=== PATIENT | female | born 1995 | race Caucasian/White ===

== ENCOUNTER 2021-02-06 06:14 | Emergency (ER) | payer BC ==
[2021-02-06 07:03] LABS: Absolute Lymphocytes (CBC) 1.8 K/uL (0.7-4.9); Basophils % 0.8 % (0-1.3); Hematocrit 40.4 % (36.0-45.0); Lymphocytes % 29.9 % (15.3-44.8); MPV 8.9 fL (7.6-11.3)
[2021-02-06 07:09] LABS: Protime INR 1.03
[2021-02-06 07:26] LABS: ALT/SGPT 22 U/L (12-78); AST/SGOT 20 U/L (15-37); Albumin 3.6 g/dL (3.4-5.0); Alkaline Phosphatase 37 U/L (45-117); BUN Blood Urea Nitrogen 11 mg/dL (7-18); Bicarbonate 26 mmol/L (21-32); Bilirubin Direct 0.1 mg/dL (0-0.2); Bilirubin Total 0.5 mg/dL (0.2-1.0); Glucose Level 100 mg/dL (74-106); Magnesium 1.8 mg/dL (1.8-2.4); NT PRO-BNP 53 pg/mL (<125); Potassium 3.7 mmol/L (3.5-5.1); Protein, Total 6.7 g/dL (6.4-8.2); Sodium Level 139 mmol/L (136-145); Troponin (Emerg Dept Use Only) < 0.02 ng/mL (0.0-0.045)
[2021-02-06 07:27] LABS: Urine Blood Negative (Negative); Urine Glucose Negative (Negative); Urine Protein Negative (Negative)
[2021-02-06] MEDS ORDERED: NA CHLORIDE 0.9% 1,000 ML ONE (07:41)
[2021-02-06 07:43] LABS: Barbiturates NEGATIVE (NEGATIVE); Benzodiazepines NEGATIVE (NEGATIVE); Cocaine NEGATIVE (NEGATIVE); METHAMPHETAM NEGATIVE (NEGATIVE); Methadone NEGATIVE (NEGATIVE); Opiates NEGATIVE (NEGATIVE); Phencyclidine NEGATIVE (NEGATIVE); THC Cannibis NEGATIVE (NEGATIVE)
--- NOTE | 2021-02-06 07:50 | EDPHYS ---
Physician Documentation [facility] Name: Gwyn Navarro Age: 26 yrs Sex: Female : 1995 Arrival Date: 02/06/2021 Time: 06:28 Bed 5 Private MD: ED Physician Abraham Dennis HPI: 02/06 06:46 This 26 yrs old Female presents to ER via EMS with complaints of Palpitations.mh7 06:46 The patient presents with a history of heart racing. Context: The symptoms occur with mh7 exercise. Onset: The symptoms/episode began/occurred today. Duration: The patient or guardian reports multiple episodes, that are intermittent, that wax and wane. Modifying factors: The symptoms are aggravated by strenuous activity, The symptoms are alleviated by nothing. Associated signs and symptoms: Pertinent positives: lightheadedness, nausea, Dizziness, Pertinent negatives: anxiety, chest pain, cough, fever, SOB, syncope, near-syncope, unusual stressors, vertigo. Severity of symptoms: At their worst the symptoms were moderate today, in the emergency department the symptoms have improved moderately. 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 - Social history:: Smoking status: Patient denies any tobacco usage or history of. ROS: 06:46 Constitutional: Negative for fever, chills, and weight loss, Eyes: Negative for injury, mh7 pain, redness, and discharge, ENT: Negative for injury, pain, and discharge, Neck: Negative for injury, pain, and swelling, Respiratory: Negative for shortness of breath, cough, wheezing, and pleuritic chest pain. 06:46 Back: Negative for injury and pain, : Negative for injury, bleeding, discharge, and swelling, MS/Extremity: Negative for injury and deformity, Skin: Negative for injury, rash, and discoloration, Neuro: Negative for headache, weakness, numbness, tingling, and seizure, Psych: Negative for depression, anxiety, suicide ideation, homicidal ideation, and hallucinations, Allergy/Immunology: Negative for hives, rash, and allergies, Endocrine: Negative for neck swelling, polydipsia, polyuria, polyphagia, and marked weight changes, Hematologic/Lymphatic: Negative for swollen nodes, abnormal bleeding, and unusual bruising. 06:46 Abdomen/GI: Negative for abdominal pain, vomiting, diarrhea, constipation, abdominal cramps, abdominal distension, anorexia, dysphagia, hematemesis, black/tarry stool, rectal pain, rectal bleeding, bowel incontinence, flatulence. Exam: 06:46 Head/Face: Normocephalic, atraumatic. Eyes: Pupils equal round and reactive to light, mh7 extra-ocular motions intact. Lids and lashes normal. Conjunctiva and sclera are non-icteric and not injected. Cornea within normal limits. Periorbital areas with no swelling, redness, or edema. Neck: Trachea midline, no thyromegaly or masses palpated, and no cervical lymphadenopathy. Supple, full range of motion without nuchal rigidity, or vertebral point tenderness. No Meningismus. Chest/axilla: Normal chest wall appearance and motion. Nontender with no deformity. No lesions are appreciated. Cardiovascular: Regular rate and rhythm with a normal S1 and S2. No gallops, murmurs, or rubs. Normal PMI, no JVD. No pulse deficits. Respiratory: Lungs have equal breath sounds bilaterally, clear to auscultation and percussion. No rales, rhonchi or wheezes noted. No increased work of breathing, no retractions or nasal flaring. Abdomen/GI: Soft, non-tender, with normal bowel sounds. No distension or tympany. No guarding or rebound. No evidence of tenderness throughout. Back: No spinal tenderness. No costovertebral tenderness. Full range of motion. Skin: Warm, dry with normal turgor. Normal color with no rashes, no lesions, and no evidence of cellulitis. MS/ Extremity: Pulses equal, no cyanosis. Neurovascular intact. Full, normal range of motion. Neuro: Awake and alert, GCS 15, oriented to person, place, time, and situation. Cranial nerves II-XII grossly intact. Motor strength 5/5 in all extremities. Sensory grossly intact. Cerebellar exam normal. Normal gait. Psych: Awake, alert, with orientation to person, place and time. Behavior, mood, and affect are within normal limits. 06:46 Constitutional: The patient appears in no acute distress, alert, awake, anxious. Vital Signs: 06:29 BP 142 / 88; Pulse 96; Resp 18; Pulse Ox 100% on R/A; Weight 52.16 kg; Height 5 ft. 2 em in. (157.48 cm); Pain 0/10; 06:48 Pulse Ox 98.4% ; em 07:00 BP 124 / 85; Pulse 73; Resp 15; Temp 97.9; Pulse Ox 100% ; bp 08:22 BP 127 / 81; Pulse 82; Resp 17; Temp 98; Pulse Ox 100% ; bp 06:29 Body Mass Index 21.03 (52.16 kg, 157.48 cm) em MDM: 07:03 Transition of care: After a detail discussion of the patient's case, care is 7 transferred to Bree Harkins MD. 07:49 Differential diagnosis: arrythmia, dehydration, stress disorder. Data reviewed: vital ma2 signs, nurses notes. Counseling: I had a detailed discussion with the patient and/or guardian regarding: the historical points, exam findings, and any diagnostic results supporting the discharge/admit diagnosis, the presence of at least one elevated blood pressure reading (>120/80) during this emergency department visit, the need for outpatient follow up. Response to treatment: the patient's symptoms have markedly improved after treatment. 07:49 Patient medically screened. [facility] 02/06 06:44 Order name: Basic Metabolic Panel; Complete Time: 07:48 [facility] 02/06 06:44 Order name: CBC with Diff; Complete Time: 07:26 [facility] 02/06 06:44 Order name: LFT's; Complete Time: 07:48 [facility] 02/06 06:44 Order name: Magnesium; Complete Time: 07:48 [facility] 02/06 06:44 Order name: NT PRO-BNP; Complete Time: 07:48 [facility] 02/06 06:44 Order name: PT-INR; Complete Time: 07:26 [facility] 02/06 06:44 Order name: Troponin (emerg Dept Use Only); Complete Time: 07:48 [facility] 02/06 06:44 Order name: XRAY Chest (1 view) [facility] 02/06 06:44 Order name: UDS; Complete Time: 07:48 [facility] 02/06 06:44 Order name: TSH; Complete Time: 07:48 [facility] 02/06 06:44 Order name: D-Dimer; Complete Time: 07:26 [facility] 02/06 06:50 Order name: CPK; Complete Time: 07:48 [facility] 02/06 07:27 Order name: Urine Dipstick-Ancillary; Complete Time: 07:48 [facility] 02/06 07:30 Order name: Urine --Ancillary (enter results) [place] 02/06 06:44 Order name: EKG; Complete Time: 06:45 [facility] 02/06 06:44 Order name: Cardiac monitoring; Complete Time: 06:56 [facility] 02/06 06:44 Order name: EKG - Nurse/Tech; Complete Time: 06:56 [facility] 02/06 06:44 Order name: IV Saline Lock; Complete Time: 06:56 [facility] 02/06 06:44 Order name: Labs collected and sent; Complete Time: 06:56 [facility] 02/06 06:44 Order name: O2 Per Protocol; Complete Time: 06:56 [facility] 02/06 06:44 Order name: O2 Sat Monitoring; Complete Time: 06:56 [facility] 02/06 06:44 Order name: Urine Dipstick-Ancillary (obtain specimen); Complete Time: 07:30 [facility] 02/06 06:44 Order name: Urine Test (obtain specimen); Complete Time: 07:30 [facility] Administered Medications: 07:30 Drug: NS 0.9% 1000 ml Route: IV; Rate: 1000 ml; Site: left antecubital; bp 08:24 Follow up: IV Status: Completed infusion; IV Intake: 1000ml bp Disposition: 02/06/21 07:49 Discharged to Home. Impression: Nausea. - Condition is Stable. - Discharge Instructions: Nausea, Adult. - Work release form, Medication Reconciliation Form, Thank You Letter, Antibiotic Education, Prescription Opioid Use form. - Follow up: Private Physician; When: Tomorrow; Reason: If symptoms return. Signatures: Dispatcher [employer] Ruben Murcia RN Bandar Guzman RN RN bp Alzahri, Mohammad, MD MD il2 Abraham Dennis MD MD 7 Corrections: (The following items were deleted from the chart) 08:24 07:49 02/06/2021 07:49 Discharged to Home. Impression: Nausea. Condition is Stable. bp Forms are Medication Reconciliation Form, Thank You Letter, Antibiotic Education, Prescription Opioid Use. Follow up: Private Physician; When: Tomorrow; Reason: If symptoms return. ma2
--- NOTE | 2021-02-06 07:50 | ER ---
[facility] Name: Gwyn Nav[facility] Age: 26 yrs Sex: Female : 1995 Arrival Date: 02/06/2021 Time: 06:28 Bed 5 Private MD: Diagnosis: Nausea Presentation: 02/06 06:29 Chief complaint: EMS states: had taken pre-workout "C4" prior to going to the gym, then em started having palpitations, nausea and dizziness, denies chest pain, 20 G LAC, given 250 mL NS and 8 mg of zofran IV. Coronavirus screen: Client denies travel out of the [place] in the last 14 days. Ebola Screen: Patient negative for fever greater than or equal to 101.5 degrees Fahrenheit, and additional compatible Ebola Virus Disease symptoms Patient denies exposure to infectious person. Patient denies travel to an Ebola-affected area in the 21 days before illness onset. No symptoms or risks identified at this time. Initial Sepsis Screen: Does the patient meet any 2 criteria? HR > 90 bpm. No. Patient's initial sepsis screen is negative. Does the patient have a suspected source of infection? No. Patient's initial sepsis screen is negative. Risk Assessment: Do you want to hurt yourself or someone else? Patient reports no desire to harm self or others. Onset of symptoms was February 06, 2021. 06:29 Method Of Arrival: EMS: [facility] em 06:29 Acuity: GURMEET 3 em Triage Assessment: 07:00 General: Appears in no apparent distress. comfortable, slender, Behavior is bp cooperative, appropriate for age, anxious. Pain: Denies pain. EENT: No deficits noted. Neuro: No deficits noted. Cardiovascular: No deficits noted. Cardiovascular: Reports palpitations, Rhythm is sinus rhythm. Respiratory: No deficits noted. GI: No signs and/or symptoms were reported involving the gastrointestinal system. : No signs and/or symptoms were reported regarding the genitourinary system. Derm: No deficits noted. Musculoskeletal: No deficits noted. 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 - Social history:: Smoking status: Patient denies any tobacco usage or history of. Screenin:34 Abuse screen: Denies threats or abuse. Denies injuries from another. Nutritional bp screening: No deficits noted. Tuberculosis screening: No symptoms or risk factors identified. Fall Risk None identified. Assessment: 07:00 General: SEE TRIAGE NOTE. bp 08:22 Reassessment: PT D/C HOME AMBULATORY WITH FAMILY, DX WITH NAUSEA. bp Vital Signs: 06:29 BP 142 / 88; Pulse 96; Resp 18; Pulse Ox 100% on R/A; Weight 52.16 kg; Height 5 ft. 2 em in. (157.48 cm); Pain 0/10; 06:48 Pulse Ox 98.4% ; em 07:00 BP 124 / 85; Pulse 73; Resp 15; Temp 97.9; Pulse Ox 100% ; bp 08:22 BP 127 / 81; Pulse 82; Resp 17; Temp 98; Pulse Ox 100% ; bp 06:29 Body Mass Index 21.03 (52.16 kg, 157.48 cm) em ED Course: 06:28 Patient arrived in ED. em 06:29 Abraham Dennis MD is Attending Physician. mh7 06:29 Maintain EMS IV. Dressing intact. Good blood return noted. Site clean \\T\\ dry. Gauge \\T\\ em site: 20 LAC. 06:31 Triage completed. em 06:32 Arm band placed on. em 07:01 XRAY Chest (1 view) In Process Unspecified. EDMS 07:06 Bandar Lau, RN is Primary Nurse. bp 07:30 Patient has correct armband on for positive identification. Bed in low position. Call bp light in reach. Side rails up X2. Adult w/ patient. 07:30 UDS Sent. bp 08:22 No provider procedures requiring assistance completed. IV discontinued, intact, bp bleeding controlled, No redness/swelling at site. Pressure dressing applied. Administered Medications: 07:30 Drug: NS 0.9% 1000 ml Route: IV; Rate: 1000 ml; Site: left antecubital; bp 08:24 Follow up: IV Status: Completed infusion; IV Intake: 1000ml bp Intake: 08:24 IV: 1000ml; Total: 1000ml. bp Outcome: 07:49 Discharge ordered by MD. wiley 08:22 Discharged to home ambulatory, with family. bp 08:22 Condition: stable 08:22 Discharge instructions given to patient, Instructed on discharge instructions, follow up and referral plans. Demonstrated understanding of instructions, follow-up care. 08:24 Patient left the ED. bp Signatures: Dispatcher [employer] Ruben Murcia RN RN em Peltier, Brian, RN RN bp Bree Harkins MD MD ma2 Abraham Dennis MD MD 7
--- NOTE | 2021-02-06 07:59 | RAD REPORT ---
EXAM DESCRIPTION: RAD - Chest Single View - 02/06/2021 7:01 am CLINICAL HISTORY: PALPITATIONS COMPARISON: June 2014 TECHNIQUE: AP portable chest image was obtained 02/06/2021 7:01 am . FINDINGS: Lungs are clear. Heart and vasculature are normal. No measurable pleural effusion and no p neumothorax. No acute bony abnormality seen. No acute aortic findings suspected. IMPRESSION: No acute cardiopulmonary process.
[2021-02-06 08:31] VITALS: O2SAT 100
[2021-02-06 08:35] VITALS: BP 127/81; TEMP 98
--- NOTE | 2021-02-07 07:53 | EKG ---
Test Date: 2021-02-06 Test Time: 06:22:08 Pony Ride Attendant: DOTTIE MEASUREMENT RESULTS: Intervals: Rate: 92 FL: 126 QRSD: 78 QT: 388 QTc: 479 [place]: P: 75 FL: 126 QRS: 61 T: 34 INTERPRETIVE STATEMENTS: Normal sinus rhythm Possible Left atrial enlargement Low voltage QRS Nonspecific T wave abnormality Prolonged QT Abnormal ECG No previous ECG available for comparison Electronically Signed On 02-07-21 07:49:21 CDT by Raymond Hernandez
== END 2021-02-06 08:24 | disposition home or self-care (01) ==
LOC: ER 06:14
DX: R00.2 Palpitations (principal); R11.0 Nausea; F90.9 Attention-deficit hyperactivity disorder, unspecified type
CPT/HCPCS: 93005; 85025; 80048; 36415; 83735; 82550; 81025; 85610; 85379; 80076; 80307 ×8; 84443; 81003; 84484; 83880; 71045; J7030; 96360; 99284

== ENCOUNTER 2024-02-15 10:40 | Emergency (ER) | payer BC ==
--- OUTSIDE RECORDS SUMMARY | 2024-02-15 10:43 | XMS REPORT | Clinical Summary ---
Author Name Unknown Organization [facility] Address [address] [place] [address] Care Team Providers Care Travel Agency Manager Name Role Phone Toña Pena MD Primary Care Provider [phone] Nedra Forte MD Unavailable Allergies Active Allergy Reactions Criticality Noted Date Comments Hydrocodone-Acetaminophen 05/11/2022 Fiery rash Latex, Natural Rubber Rash Low 05/11/2022 Dry mouth Tramadol Rash Low 05/11/2022 Medications Medication Sig Dispensed Refills Start Date End Date Status buPROPion (WELLBUTRIN SR) 150 mg 12 hr tablet Take 1 tablet (150 mg) by mouth daily. 01/28/2023 Active Adderall XR 20 mg 24 hr capsule Take 1 capsule (20 mg) by mouth every morning. 06/04/2023 Active Active Problems Problem Noted Date Diagnosed Date Multinodular goiter 05/17/2022 Overview: -- 03/2022: Patient notes left sided neck swelling and presents to PCP for evaluation. -- 03/29/2022: ULTRASOUND H/N SOFT TISSUE-0.2 x 0.9 x 0.2 cm cyst in superior right thyroid gland. 0.4 x 0.2 x 0.3 cm colloid cyst in left superior gland. 0.3 x 0.2 x 0.3 cm colloid cyst in left mid gland. 0.8 x 0.3 x 0.6 cm node in right mid neck. 0.7 x 0.7 x 0.7 cm node in left superior neck. 1.4 x 0.4 x 1.2 cm node in left mid neck is area of palpable lump, noted with a fatty hilus. -- 04/30/2022: CT NECK-Unremarkable CT scan of the neck with contrast. The thyroid gland is normal. There is no significant adenopathy in the neck, supraclavicular fossa, axilla or superior mediastinum. -- 05/18/2022: ULTRASOUND-Within the left thyroid lobe, there are multiple subcentimeter benign-appearing cystic nodules measuring up to 0.7 x 0.4 x 0.2 cm. No suspicious thyroid nodule is seen. No suspicious cervical adenopathy. Encounters Date Type Department Care Team Description 06/19/2023 9:30 AM CDT Follow-Up Endocrine Center [address] [facility]th [place] [address] Magaly Basurto PA Multinodular goiter 06/19/2023 7:15 AM CDT Ancillary Procedure Neuro-Interventiona l Ultrasound [address] [facility], 6th [place] [address] Magaly Basurto PA Multinodular goiter 06/19/2023 6:51 AM CDT - 06/19/2023 11:59 PM CDT Hospital Encounter [facility] [address] [place] [address] Magaly Basurto PA Multinodular goiter Discharge Disposition: Home 06/19/2023 Travel after 02/15/2023 Surgical History Surgery Date Site/Laterality Comments COLONOSCOPY 05/2021 Medical History Medical History Date Comments Hypertension 10/03/2021 Migraine 06/2010 Allergic rhinitis 12/2018 Sinusitis 07/2015 Difficulty talking 01/2022 Swallowing problem 02/2022 Fatty liver 12/2018 Depressive disorder 05/2010 Anxiety 05/2010 Social History Tobacco Use Types Packs/Day Years Used Date Smoking Tobacco: Never Smokeless Tobacco: Never Alcohol Use Standard Drinks/Week Comments Yes 3 (1 standard drink = 0.6 oz pur e alcohol) Sex and Gender Information Value Date Recorded Sex Assigned at Female 05/07/2022 10:24 AM CDT Gender Identity Female 05/07/2022 10:24 AM CDT Sexual Orientation Straight 05/07/2022 10 :24 AM CDT Job Start Date Occupation Industry Not on file Not on file Not on file Obstetrics History Para Term AB IAB SAB Ectopic Multiple Livin g Live Births 1 1 Date Outcome GA Total Labor Labor/2nd/3rd Weight Sex Type Anes PTL Jaymie A1 A5 Name Clin Para Last Filed Vital Signs Vital Sign Reading Time Taken Comments Blood Pressure 125/86 06/19/2023 8:59 AM CDT Pulse 82 06/19/2023 8:59 AM CDT Temperature 37.3 C (99.1 F) 06/19/2023 8:59 AM CD T Respiratory Rate 16 06/19/2023 8:59 AM CDT Oxygen Saturation 98% 06/19/2023 8:59 AM CDT Inhaled Oxygen Concentration - - Weight 57.9 kg (127 lb 10.3 oz) 06/19/2023 8:59 AM CDT Height - - Body Mass Index 23.49 05/18/2022 9:36 AM CDT Plan of Treatment Health Maintenance Due Date Last Done Comments COVID-19 Vaccine ( season) 04/19/202301/2021 Influenza Vaccine 04/19/2024 Procedures Procedure Name Priority Date/Time Associated Diagnosis Comments US THYROID Routine 06/19/2023 7:44 AM CDT Multinodular goiter FREE THYROXINE Routine 06/19/2023 7:10 AM CDT Multinodular goiter THYROID STIMULATING HORMONE Routine 06/19/2023 7:10 AM CDT Multinodular goiter after 02/15/2023 Results * US Thyroid (06/19/2023 7:44 AM CDT) Anatomical Region Laterality Modality Neck Ultrasound 06/19/2023 7:48 AM CDT Impressions 06/19/2023 9:05 AM CDT 1. Multinodular thyroid with subcentimeter TR 1 and 2 nodules. 2. No central or lateral adenopathy. ACTIONABLE ITEMS/RECOMMENDATIONS: None. General considerations for ACR TI-RADS: Please note: TI-RADS recommendations are for low risk patients. If there are patient related factors, i.e. positive PET/CT, personal history of head and neck radiation as a child, or other risk factors for papillary thyroid carcinoma, the recommendations may not apply to that specific patient. References: Guerrero FN et al., J Am Dion Radiology 2017;14:587-595. https://www.acr.org/Clinical-Resources/Najjcwdxm-zxh-Sxoi-Systems/TI-RADS ACR 2017 White Paper Guidelines for Thyroid Nodule Management: TR1 Benign: no FNA TR2 Not Suspicious: No FNA TR3 Mildly Suspicious: FNA if >= 2.5 cm; Follow if >= 1.5 cm at 1, 3, and 5 years TR4 Moderately Suspicious: FNA if >= 1.5 cm; Follow if >= 1 cm at 1, 2, 3, and 5 years. TR5 Highly Suspicious: FNA if >= 1 cm; Follow if >= 0.5 cm every year for up to 5 years. 2017 cancer risk final analysis as per Multi-institutional Analysis of Thyroid Nodule Risk Stratification Using the ACR TI-RADS: TR1: 0.3% TR2: 1.5% TR3: 4.8% TR4: 9.1% TR5: 35% Narrative 06/19/2023 9:05 AM CDT FULL RESULT: EXAM: US THYROID on 06/19/2023 7:44 AM HISTORY: Multinodular goiter INDICATION: multinodular goiter follow-up COMPARISON: Ultrasound 06/19/2023 PROCEDURE COMMENTS: Real-time ultrasound examination of the neck soft tissues was performed. FINDINGS: Right Thyroid Lobe: 5.3 x 1 x 1.9 cm Background parenchymal echogenicity: Normal Nodule 1: Ill-defined 0.7 x 0.7 x 0.4 cm mid thyroid nodule with spongiform and possibly solid isoechoic components. No calcifications. This nodule was not as well appreciated on the prior scan likely due to ill-defined features, however can be retrospectively located on the cine images from 05/18/2022 and appears similar in size. ACR TI-RADS: 2 Right central compartment: No suspicious appearing lymph nodes. Isthmus: 0.2 cm thick Suprasternal or Delphian lymph nodes: No suspicious appearing lymph nodes. Left Thyroid Lobe: 4.9 x 1.1 x 2 cm Background parenchymal echogenicity: Normal Nodule 2: Ill-defined spongiform 0.5 x 0.5 x 0.3 cm superior thyroid nodule with ring down artifact. No calcification. Stable in size when compared to the cine images from the comparison study. ACR TI-RADS: 1 Nodule 3: Ill-defined spongiform 0.5 x 0.4 x 0.3 cm superior thyroid nodule. ACR TI-RADS: 1 Nodule 4: 0.4 x 0.3 x 0.3 cm spongiform mid thyroid nodule with ringdown artifact, not significantly changed in size taking into consideration the differences in measurement techniques. ACR TI-RADS: 1 Additional few scattered tiny cystic/spongiform nodules are not measured individually. Left central compartment: No suspicious appearing lymph nodes. Lymph nodes: Right lateral compartment: No suspicious appearing lymph nodes. Left lateral compartment: No suspicious appearing lymph nodes. Procedure Note Soraya Spring MD - 06/19/2023 FULL RESULT: EXAM: US THYROID on 06/19/2023 7:44 AM HISTORY: Multinodular goiter INDICATION: multinodular goiter follow-up COMPARISON: Ultrasound 06/19/2023 PROCEDURE COMMENTS: Real-time ultrasound examination of the neck softtissues was performed. FINDINGS: Right Thyroid Lobe: 5.3 x 1 x 1.9 cm Background parenchymal echogenicity: Normal Nodule 1: Ill-defined 0.7 x 0.7 x 0.4 cm mid thyroid nodule withspongiform and possibly solid isoechoic components. No calcifications.This nodule was not as well appreciated on the prior scan likely due toill-defined features, however can be retrospectively located on the cineimages from 05/18/2022 and appears similar in size. ACR TI-RADS: 2 Right central compartment: No suspicious appearing lymph nodes. Isthmus: 0.2 cm thick Suprasternal or Delphian lymph nodes: No suspicious appearing lymphnodes. Left Thyroid Lobe: 4.9 x 1.1 x 2 cm Background parenchymal echogenicity: Normal Nodule 2: Ill-defined spongiform 0.5 x 0.5 x 0.3 cm superior thyroidnodule with ring down artifact. No calcification. Stable in size whencompared to the cine images from the comparison study. ACR TI-RADS: 1 Nodule 3: Ill-defined spongiform 0.5 x 0.4 x 0.3 cm superior thyroidnodule. ACR TI-RADS: 1 Nodule 4: 0.4 x 0.3 x 0.3 cm spongiform mid thyroid nodule with ringdownartifact, not significantly changed in size taking into consideration thedifferences in measurement techniques. ACR TI-RADS: 1 Additional few scattered tiny cystic/spongiform nodules are not measuredindividually. Left central compartment: No suspicious appearing lymph nodes. Lymph nodes: Right lateral compartment: No suspicious appearing lymph nodes. Left lateral compartment: No suspicious appearing lymph nodes. IMPRESSION: 1. Multinodular thyroid with subcentimeter TR 1 and 2 nodules. 2. No central or lateral adenopathy. ACTIONABLE ITEMS/RECOMMENDATIONS: None. General considerations for ACR TI-RADS: Please note: TI-RADSrecommendations are for low risk patients. If there are patient relatedfactors, i.e. positive PET/CT, personal history of head and neck radiationas a child, or other risk factors for papillary thyroid carcinoma, therecommendations may not apply to that specific patient. References: Guerrero FN et al., J Am Dion Radiology 2017;14:587-595. https://www.acr.org/Clinical-Resources/Gmhxhetbb-phg-Tsms-Systems/TI-RADS ACR 2017 White Paper Guidelines for Thyroid Nodule Management: TR1 Benign: no FNA TR2 Not Suspicious: No FNA TR3 Mildly Suspicious: FNA if >= 2.5 cm; Follow if >= 1.5 cm at 1, 3, and5 years TR4 Moderately Suspicious: FNA if >= 1.5 cm; Follow if >= 1 cm at 1, 2, 3,and 5 years. TR5 Highly Suspicious: FNA if >= 1 cm; Follow if >= 0.5 cm every year forup to 5 years. 2017 cancer risk final analysis as per Multi-institutional Analysis ofThyroid Nodule Risk Stratification Using the ACR TI-RADS: TR1: 0.3% TR2: 1.5% TR3: 4.8% TR4: 9.1% TR5: 35% Magaly SHELTON Nicolette US ORDERABLES * TSH (06/19/2023 7:10 AM CDT) Thyroid Stimulating Hormone 2.15 0.27 - 4.20 mcunit/mL 06/19/2023 7:50 AM CDT [facility] Blood Venipuncture / Unknown 06/19/2023 7:10 AM CDT 06/19/2023 7:11 AM CDT Magaly Basurto NIKITA LAB BLOOD ORDERABLES [facility] [address] [facility] [place] [address] * Free T4 (06/19/2023 7:10 AM CDT) T4 (Thyroxine) Free 1.23 0.93 - 1.70 ng/dL 06/19/2023 7:50 AM CDT [facility] Blood Venipuncture / Unknown 06/19/2023 7:10 AM CDT 06/19/2023 7:11 AM CDT Magaly Basurto PA LAB BLOOD ORDERABLES [facility] [address] [facility] [place] [address] after 02/15/2023 Care Teams Travel Agency Manager Relationship Specialty Start Date End Date Toña Pena MD [address] [place] [address] [email or web address] PCP - General Endocrinology 04/27/22 Nedra Forte MD [address] [place] [address] [email or web address] PCP - External Primary Care Provider Family Practice 05/16/22
[2024-02-15] MEDS ORDERED: NA CHLORIDE 0.9% 1,000 ML ONE (11:06)
[2024-02-15 11:14] LABS: Absolute Eosinophils 0.1 K/uL (0-0.5); Absolute Monocytes 0.6 K/uL (0.1-1.3); Absolute Neutrophil 7.3 K/uL (1.8-8.0); Basophils % 0.4 % (0-1.3); Eosinophils % 0.5 % (0-4.4); Hematocrit 35.5 % (36.0-45.0); Hemoglobin 12.4 g/dL (12.0-15.0); Lymphocytes % 19.8 % (15.3-44.8); MCH 31.3 pg (27.0-35.0); MCV 89.4 fL (80-100); MPV 8.4 fL (7.6-11.3); Monocytes % 6.4 % (3.3-12.3); Neutrophils % 72.9 % (41.7-73.7); Nucleated Red Blood Cells % 0.1 % (0-0); Platelets 280 thou/uL (152-406); RBC Red Blood Cell Count 3.97 M/uL (3.86-4.86); Red Cell Distribution Width 12.9 % (12.1-15.2)
[2024-02-15 11:15] LABS: Specific Gravity < 1.005 (1.005-1.030); Sqamous Epithelial <5 /HPF (None Seen); Urine Bacteria <20 /HPF (<20); Urine Bilirubin NEGATIVE (Negative); Urine Blood Negative (Negative); Urine Clarity Turbid (Clear); Urine Color Colorless (Yellow); Urine Culture Reflex Order NOT NEEDED; Urine Glucose NEGATIVE (Negative); Urine Ketones NEGATIVE (Negative); Urine Microscopic Reflex YN ORDER UMIC; Urine Nitrite NEGATIVE (Negative); Urine Protein NEGATIVE (Negative); Urine RBC <5 /HPF (None Seen); Urine Urobilinogen Normal (Normal); Urine WBC <5 /HPF (<5); Urine pH 7.5 (5.0-7.0)
[2024-02-15 11:26] LABS: Anion Gap 11.8 mEq/L (5.0-15.0); Potassium 4.8 mEq/L (3.5-5.1)
--- NOTE | 2024-02-15 12:37 | RAD REPORT ---
EXAM DESCRIPTION: US - OB Limited - 02/15/2024 11:38 am CLINICAL HISTORY: near syncope, no movement COMPARISON: No comparisons TECHNIQUE: Sonographic grayscale and color flow images of a late-trimester were obtained t hrough transabdominal approach. FINDINGS: A single live intrauterine is identified. Placenta has formed posteriorly. Myometrial contraction at the lower uterine segment evaluation. The inferior placental edge extends over the contraction, and potentially over the internal cervical os a s well. position is transverse. Cervical canal is closed measuring 4.9 cm in length. Femur length measures 31.3 millimeters, corresponding to gestational age of 19 weeks, 5 days. Amniotic fluid index volume is subjectively within normal limits. heart rate: 148 BPM Maternal ovaries were not visualized. No free pelvic fluid. IMPRESSION: 1. Single live intrauterine . 2. Inferior placental edge extends over a lower segment myometrial contraction, and potentially over the internal cervical os as well, although the contraction somewhat limits evaluation. 3. Calculated gestational age: 19 weeks, 5 days. Estimated due date by ultrasound: 07/06/2024.
--- NOTE | 2024-02-15 12:50 | ER ---
Nurse's Notes [facility] Name: Gwyn Navarro Age: 29 yrs Sex: Female : 1995 Arrival Date: 02/15/2024 Time: 10:40 Bed 8 Private MD: Diagnosis: Near syncope Presentation: 02/14 10:44 Chief complaint: Near syncopal episode just COTA. Pt is approx 5 months , , hb ROSEMARY 07/06. Coronavirus screen: At this time, the client does not indicate any symptoms associated with coronavirus-19. Ebola Screen: No symptoms or risks identified at this time. Initial Sepsis Screen: Does the patient meet any 2 criteria? No. Patient's initial sepsis screen is negative. Does the patient have a suspected source of infection? No. Patient's initial sepsis screen is negative. Risk Assessment: Do you want to hurt yourself or someone else? Patient reports no desire to harm self or others. Onset of symptoms was February 15, 2024. 10:44 Method Of Arrival: Ambulatory hb 10:44 Acuity: GURMEET 3 hb Historical: - Allergies: 10:45 Latex; hb 10:45 Sulfa (Sulfonamide Antibiotics); hb - PMHx: 10:45 ADD/ADHD; hb - Immunization history:: Adult Immunizations up to date. - Infectious Disease History:: Denies. - Family history:: not pertinent. - Social history:: Smoking status: Patient denies any tobacco usage or history of. - Hospitalizations: : No recent hospitalization is reported. Screenin:14 [facility] ED Fall Risk Assessment (Adult) History of falling in the last 3 months, ld1 including since admission No falls in past 3 months (0 pts) Confusion or Disorientation No (0 pts) Intoxicated or Sedated No (0 pts) Impaired Gait No (0 pts) Mobility Assist Device Used No (0 pt) Altered Elimination No (0 pt) Score/Fall Risk Level 0 - 2 = Low Risk Oriented to surroundings, Maintained a safe environment, Educated pt \T\ family on fall prevention, incl call for assistance when getting out of bed, Assessed \T\ reinforced patient's understanding of fall precautions, Provided non-skid footwear, Hourly rounding (assess needs \T\ fall precautionary measures) done, Used ambulatory aids as needed (educated on \T\ assisted with), Used gait belt as appropriate. Abuse screen: Denies threats or abuse. Denies injuries from another. Nutritional screening: No deficits noted. Tuberculosis screening: No symptoms or risk factors identified. Assessment: 11:14 General: Appears in no apparent distress. comfortable, Behavior is calm, cooperative, ld1 appropriate for age. Pain: Denies pain. Neuro: Level of Consciousness is awake, alert, obeys commands, Oriented to person, place, time, situation. Cardiovascular: Capillary refill < 3 seconds Patient's skin is warm and dry. Respiratory: Airway is patent Respiratory effort is even, unlabored. GI: Abdomen is flat, non-distended. : No signs and/or symptoms were reported regarding the genitourinary system. EENT: No signs and/or symptoms were reported regarding the EENT system. Derm: No signs and/or symptoms reported regarding the dermatologic system. Musculoskeletal: No signs and/or symptoms reported regarding the musculoskeletal system. Vital Signs: 10:44 BP 150 / 96; Pulse 124; Resp 20; Temp 97.9(TE); Pulse Ox 100% on R/A; Pain 0/10; hb 11:14 BP 117 / 81; Pulse 106; Resp 18; Pulse Ox 100% on R/A; ld1 12:50 BP 111 / 80; Pulse 97; Resp 16; Pulse Ox 99% on R/A; ko1 10:44 Pain Scale: Adult hb ED Course: 10:43 Patient arrived in ED. hb 10:43 Chris Acosta MD is Attending Physician. rn 10:45 Triage completed. hb 10:47 Linda Stevens, RN is Primary Nurse. ld1 11:13 Inserted saline lock: 20 gauge in right antecubital area, using aseptic technique. jr12 Blood collected. 11:13 Urine collected: clean catch specimen, cloudy. jr12 11:13 Basic Metabolic Panel Sent. jr12 11:13 Urinalysis w/ reflexes Sent. jr12 11:13 CBC with Diff Sent. jr12 11:14 No provider procedures requiring assistance completed. ld1 11:14 Patient has correct armband on for positive identification. Placed in gown. Bed in low ld1 position. Call light in reach. Side rails up X2. security monitor on. Pulse ox on. NIBP on. Door closed. Noise minimized. Warm blanket given. 11:15 Arm band placed on right wrist. Patient placed in an exam room, on a stretcher, on ko1 pulse oximetry, Patient notified of wait time. 11:20 Provided Education on: call light. ko1 11:40 US OB Limited In Process Unspecified. EDMS 12:51 IV discontinued, intact, bleeding controlled, No redness/swelling at site. Pressure ko1 dressing applied. Administered Medications: 11:14 Drug: NS 0.9% IV 1000 ml IV at 1000 ml once Route: IV; Rate: 1000 ml; Site: right ld1 antecubital; 12:30 Follow up: Response: No adverse reaction; IV Status: Completed infusion; IV Intake: ko1 1000ml Medication: 11:14 VIS not applicable for this client. ld1 Point of Care Testing: Blood Glucose: 10:33 Blood Glucose: 85 mg/dL; hb Ranges: Intake: 12:30 IV: 1000ml; Total: 1000ml. ko1 Outcome: 12:49 Discharge ordered by . rn 12:51 Discharged to home ambulatory, ko1 12:51 Condition: stable 12:54 Discharge instructions given to patient, Instructed on discharge instructions, follow ko1 up and referral plans. Demonstrated understanding of instructions, follow-up care, medications, 12:58 Patient left the ED. ko1 Signatures: Dispatcher [employer] EDMS Chris Acosta MD MD rn Baxter, Heather, RN RN Linda Stevens RN RN ld1 Radha Garvin RN RN ko1 Aby Gotti jr12
--- NOTE | 2024-02-15 12:50 | EDPHYS ---
Physician Documentation [facility] Name: Gwyn Navarro Age: 29 yrs Sex: Female : 1995 Arrival Date: 02/15/2024 Time: 10:40 Bed 8 Private MD: ED Physician Chris Acosta HPI: 02/14 12:28 This 29 yrs old Female presents to ER via Ambulatory with complaints of Near Syncope. rn 12:28 The patient has experienced near-syncope. Onset: The symptoms/episode began/occurred rn just prior to arrival. Duration: This was a single episode, that lasted 15 minute(s). Associated injury: The patient did not suffer any apparent associated injury. Current symptoms: Currently, the patient is not experiencing any symptoms. The patient has not experienced similar symptoms in the past. Patient reports was driving when felt lightheaded and palpitations, was dizzy. Patient reports feels much better now is back to normal. Denies recent illness. No fever. No shortness of breath. Is 5 months but denies any leakage of fluid or vaginal bleeding. No abdominal pain.. Historical: - Allergies: 10:45 Latex; hb 10:45 Sulfa (Sulfonamide Antibiotics); hb - PMHx: 10:45 ADD/ADHD; hb - Immunization history:: Adult Immunizations up to date. - Infectious Disease History:: Denies. - Family history:: not pertinent. - Social history:: Smoking status: Patient denies any tobacco usage or history of. - Hospitalizations: : No recent hospitalization is reported. ROS: 12:28 Constitutional: Negative for fever, chills, and weight loss, Cardiovascular: Negative rn for chest pain, palpitations, and edema, Respiratory: Negative for shortness of breath, cough, wheezing, and pleuritic chest pain, Abdomen/GI: Negative for abdominal pain, nausea, vomiting, diarrhea, and constipation, MS/Extremity: Negative for injury and deformity, Skin: Negative for injury, rash, and discoloration, Neuro: Negative for headache, weakness, numbness, tingling, and seizure Exam: 12:28 Constitutional: This is a well developed, well nourished patient who is awake, alert, rn and in no acute distress. Head/Face: Normocephalic, atraumatic. Eyes: Lids and lashes normal. Conjunctiva and sclera are non-icteric and not injected. Cornea within normal limits. Periorbital areas with no swelling, redness, or edema. ENT: Dry mucous membranes Cardiovascular: Tachycardic, regular. Respiratory: No increased work of breathing, no retractions or nasal flaring. Abdomen/GI: Soft, non-tender Skin: Warm, dry Neuro: Awake and alert, GCS 15, oriented to person, place, time, and situation. Cranial nerves II-XII grossly intact. Motor strength 5/5 in all extremities. Sensory grossly intact. Cerebellar exam normal. Vital Signs: 10:44 BP 150 / 96; Pulse 124; Resp 20; Temp 97.9(TE); Pulse Ox 100% on R/A; Pain 0/10; hb 11:14 BP 117 / 81; Pulse 106; Resp 18; Pulse Ox 100% on R/A; ld1 12:50 BP 111 / 80; Pulse 97; Resp 16; Pulse Ox 99% on R/A; ko1 10:44 Pain Scale: Adult hb MDM: 10:44 Patient medically screened. rn 12:44 Differential Diagnosis: cardiac arrhythmia, Dehydration, electrolyte disorder, UTI. rn Data reviewed: vital signs, nurses notes, lab test result(s), EKG, radiologic studies, ultrasound, and as a result, I will discharge patient. Counseling: I had a detailed discussion with the patient and/or guardian regarding the historical points, exam findings, and any diagnostic results supporting the discharge/admit diagnosis, lab results, radiology results, the need for outpatient follow up, to return to the emergency department if symptoms worsen or persist or if there are any questions or concerns that arise at home. Special discussion: I discussed with the patient/guardian in detail that at this point there is no indication for admission to the hospital. It is understood, however, that if the symptoms persist or worsen the patient needs to return immediately for re-evaluation. Based on the history and exam findings, there is no indication for further emergent testing or inpatient evaluation. I discussed with the patient/guardian the need to see the OB Gyne specialist for further evaluation of the symptoms. ED course: Patient was back to baseline by the time she arrived here. No further episodes of dizziness. Stable vitals. No acute findings and workup. Placenta does not look a little low on ultrasound, discussed with patient need to follow-up with her OB and discuss placenta previa if placenta does not migrate. Patient has appointment with her OB in 2 days already scheduled.. 02/14 10:44 Order name: glucometer results - FOR PT WITH NO ID; Complete Time: 12:19 hb 02/14 10:44 Order name: CBC with Diff; Complete Time: 11:42 rn 02/14 10:44 Order name: Basic Metabolic Panel; Complete Time: 11:42 rn 02/14 10:44 Order name: Urinalysis w/ reflexes; Complete Time: 11:42 rn 02/14 10:44 Order name: US OB Limited; Complete Time: 12:39 rn 02/14 10:44 Order name: IV Start; Complete Time: 11:13 rn 02/14 10:44 Order name: Glucose Level; Complete Time: 10:58 rn 02/14 10:44 Order name: EKG - Nurse/Tech; Complete Time: 10:57 rn 02/14 10:45 Order name: Cardiac monitoring; Complete Time: 10:48 rn 02/14 10:45 Order name: O2 Sat Monitoring; Complete Time: 10:48 rn Administered Medications: 11:14 Drug: NS 0.9% IV 1000 ml IV at 1000 ml once Route: IV; Rate: 1000 ml; Site: right ld1 antecubital; 12:30 Follow up: Response: No adverse reaction; IV Status: Completed infusion; IV Intake: ko1 1000ml Point of Care Testing: Blood Glucose: 10:33 Blood Glucose: 85 mg/dL; hb Ranges: Critical Glucose Levels:Adult <50 mg/dl or >400 mg/dl <40 mg/dl or >180 mg/dl Disposition Summary: 02/15/24 12:49 Discharge Ordered Notes: Location: Home rn Problem: new rn Symptoms: have improved rn Condition: Stable rn Diagnosis - Near syncope rn Followup: rn - With: Private Physician - When: As needed - Reason: Recheck today's complaints, Re-evaluation by your physician Discharge Instructions: - Discharge Summary Sheet rn - Dizziness rn Forms: - Medication Reconciliation Form rn - Antibiotic [employer] professor - Prescription Opioid Use rn - Patient Portal Instructions rn - Leadership Thank You Letter rn Signatures: Dispatcher Chris Ruelas MD MD rn Baxter, Heather, RN RN hb Sims, Lauren, RN RN ld1 Radha Garvin RN ko1 Corrections: (The following items were deleted from the chart) 10:45 10:45 CBC+H.LAB.BRZ ordered. EDMS EDMS 10:45 10:45 BASIC METABOLIC PANEL+C.LAB.BRZ ordered. EDMS EDMS 10:45 10:45 Urinalysis+U.LAB.BRZ ordered. EDMS EDMS 10:45 10:45 OB Limited+US.RAD.BRZ ordered. EDMS EDMS
[2024-02-15 13:15] VITALS: BP 111/80; TEMP 97.9; O2SAT 99
--- NOTE | 2024-02-17 14:19 | EKG ---
Test Date: 2024-02-15 Test Time: 10:53:56 Bronzer: Elias SUH MEASUREMENT RESULTS: Intervals: Rate: 103 WY: 128 QRSD: 76 QT: 354 QTc: 463 [place]: P: 68 WY: 128 QRS: 91 T: -6 INTERPRETIVE STATEMENTS: Sinus tachycardia Rightward axis Nonspecific ST and T wave abnormality Abnormal ECG Compared to ECG 02/06/2021 06:22:08 Right-axis deviation now present ST (T wave) deviation now present Sinus rhythm no longer present T-wave abnormality no longer present Prolonged QT interval no longer present Electronically Signed On 02-17-24 14:15:17 CDT by Matt Lozano
== END 2024-02-15 12:58 | disposition home or self-care (01) ==
LOC: ER 10:40
DX: O26.892 Other specified pregnancy related conditions, second trimester (principal); Z3A.19 19 weeks gestation of pregnancy
CPT/HCPCS: 85025; 81001; 80048; 36415; 82947; 76815; J7030; 93005; 96360; 99285